=== PATIENT | male | born 1965 | race Caucasian/White ===

== ENCOUNTER 2017-01-07 12:55 | Emergency (ER) | payer OTHER ==
--- NOTE | 2017-01-07 13:15 | EDM.PDOC ---
ED HPI GENERAL MEDICAL PROBLEM - General Chief Complaint: Upper Extremity Injury/Pain Stated Complaint: LEFT SHOULDER PAIN Time Seen by Provider: 01/07/17 13:15 Source of Information: Reports: Patient - History of Present Illness INITIAL COMMENTS - FREE TEXT/NARRATIVE: HISTORY AND PHYSICAL: History of present illness: []Patient presents with 6 out of 10 pain concerning the left shoulder with movement, no pain associated with head movement does have some mild pain on forward extension is able to get bad past horizontal rotator cuff appears intact noting he has had a rotator cuff injury in the past as well as shoulder separation concerning the left shoulder. Apprehension test is negative no redness warmth or swelling no open lesion or bruising I can appreciate muscle spasm in the deltoid distribution as well as spasm associated with bicep and tricep which does produce were reproduce some of the pain he is having, entire limb is neurovascularly intact He states pain began after he attended a wedding in [place] he denies any injury or trauma states he was not drinking did not have any falls or stretches shoulder at that time however he woke up the following day with mild pain that was just noticeable and it is been increasing in severity with use since No fever nausea vomiting chills sweats Review of systems: As per history of present illness and below otherwise all systems reviewed and negative. Past medical history: As per history of present illness and as reviewed below otherwise noncontributory. Surgical history: As per history of present illness and as reviewed below otherwise noncontributory. Social history: No reported history of drug or alcohol abuse. Family history: As per history of present illness and as reviewed below otherwise noncontributory. Physical exam: HEENT: Atraumatic, normocephalic, pupils reactive, negative for conjunctival pallor or scleral icterus, mucous membranes moist, throat clear, neck supple, nontender, trachea midline. Lungs: Clear to auscultation, breath sounds equal bilaterally, chest nontender. Heart: S1S2, regular, negative for clicks, rubs, or JVD. Abdomen: Soft, nondistended, nontender. Negative for masses or hepatosplenomegaly. Negative for costovertebral tenderness. Pelvis: Stable nontender. Genitourinary: Deferred. Rectal: Deferred. Extremities: Atraumatic, negative for cords or calf pain. Neurovascular unremarkable. Neuro: Awake, alert, oriented. Cranial nerves II through XII unremarkable. Cerebellum unremarkable. Motor and sensory unremarkable throughout. Exam nonfocal. Left shoulder as per history of present illness Diagnostics: []Left shoulder 3 views Therapeutics: []Cataflam 50 mg by mouth 3 times a day when necessary #30 no refill Ice ibuprofen Follow-up orthopedist Impression: []Left shoulder pain/muscle spasm Definitive disposition and diagnosis as appropriate pending reevaluation and review of above. Left Shoulder Pain Score (Numeric/FACES): 4 - Related Data Allergies Allergy/AdvReac Type Severity Reaction Status Date / Time No Known Allergies Allergy Verified 01/07/17 13:14 Home Meds: Home Meds . [No Known Home Meds] 01/07/17 [History] Review of Systems - Review of Systems Review Of Systems: ROS reveals no pertinent complaints other than HPI. ED EXAM, GENERAL - Physical Exam Exam: See Below Course - Vital Signs Last Recorded V/S: Last Vital Signs Temp 36.7 C 01/07/17 13:15 Pulse 92 01/07/17 13:15 Resp 18 01/07/17 13:15 BP 143/94 H 01/07/17 13:15 Pulse Ox 98 01/07/17 13:15 Departure - Departure Time of Disposition: 13:55 Disposition: Home, Self-Care 01 Condition: Good Clinical Impression: Muscle spasm, Left shoulder pain - Discharge Information Referrals: PCP,None [Primary Care Provider] - Forms: ED Department Discharge Additional Instructions: Medication as prescribed No need for ibuprofen or Tylenol with this medication Return if symptoms persist or worsen or new concerning symptoms develop Follow-up with orthopedist, number below provided for follow-up [facility] [address], [address] [place] [address] my orthopedic The following information is given to patients seen in the emergency department who are being discharged to home. This information is to outline your options for follow-up care. We provide all patients seen in our emergency department with a follow-up referral. The need for follow-up, as well as the timing and circumstances, are variable depending upon the specifics of your emergency department visit. If you don't have a primary care physician on staff, we will provide you with a referral. We always advise you to contact your personal physician following an emergency department visit to inform them of the circumstance of the visit and for follow-up with them and/or the need for any referrals to a consulting specialist. The emergency department will also refer you to a specialist when appropriate. This referral assures that you have the opportunity for follow-up care with a specialist. All of these measure are taken in an effort to provide you with optimal care, which includes your follow-up. Under all circumstances we always encourage you to contact your private physician who remains a resource for coordinating your care. When calling for follow-up care, please make the office aware that this follow-up is from your recent emergency room visit. If for any reason you are refused follow-up, please contact the [facility] emergency department at and asked to speak to the emergency department charge nurse.
--- NOTE | 2017-01-07 13:44 | CR ---
EXAMINATION: Left shoulder HISTORY: Pain COMPARISON: None TECHNIQUE: 3 views FINDINGS: Moderate acromioclavicular osteoarthritic changes are noted with mild widening at the AC chandler int. No fracture or acute osseous abnormalities demonstrated. Mild joint space narrowing is noted wit hin the glenohumeral joint with subcortical cystic change noted within the superior lateral humeral h ead. IMPRESSION: 1. Moderate osteoarthritic changes without a definite acute osseous abnormality identified.
[2017-01-07 18:11] VITALS: BP 138/92
== END 2017-01-07 14:30 | disposition home or self-care (01) ==
LOC: MW.ED 12:55
DX: M62.838 Other muscle spasm (principal); M25.512 Pain in left shoulder
CPT/HCPCS: 73030-26-LT; 73030-LT; 99283; 99284

== ENCOUNTER 2017-09-18 14:48 | Emergency (ER) | payer OTHER ==
[2017-09-18] MEDS ORDERED: Morphine 4 MG/ML Syringe IM ONE (15:08)
[2017-09-18] MEDS ORDERED: Morphine 4 MG/ML Syringe ONE (15:09)
--- NOTE | 2017-09-18 15:36 | CR ---
EXAMINATION: Right shoulder HISTORY: Pain COMPARISON: None TECHNIQUE: 2 views FINDINGS/IMPRESSION: There is an anterior inferior glenohumeral dislocation noted. Osseous structures and joint spaces otherwise appear intact. Moderate acromioclavicular osteoarthritic changes.
[2017-09-18] MEDS ORDERED: HYDROmorphone 2 MG/ML SDV IM ONE (15:50)
--- NOTE | 2017-09-18 15:52 | EDM.PDOC ---
ED HPI GENERAL MEDICAL PROBLEM - General Chief Complaint: Upper Extremity Injury/Pain Stated Complaint: MIGHT DISLOCATED RT SHOULDER Time Seen by Provider: 09/18/17 14:58 Source of Information: Reports: Patient History Limitations: Reports: No Limitations - History of Present Illness INITIAL COMMENTS - FREE TEXT/NARRATIVE: HISTORY AND PHYSICAL: History of present illness: Patient is a 52-year-old male who presents to the emergency room today with complaints of right shoulder pain after falling from standing height. He states he tripped and fell landing on his right shoulder, pain with range of motion and movement. Upon arrival the arm is guarded in towards his body. He states he does have a history of rotator cuff repair and is concerned he has dislocation along with some repeat injury of the rotator cuff. He denies hitting his head or any loss of consciousness. Denies any numbness or tingling to the affected extremity. Review of systems: As per history of present illness and below otherwise all systems reviewed and negative. Past medical history: As per history of present illness and as reviewed below otherwise noncontributory. Surgical history: As per history of present illness and as reviewed below otherwise noncontributory. Social history: No reported history of drug or alcohol abuse. Family history: As per history of present illness and as reviewed below otherwise noncontributory. Physical exam: General: Well-developed and well-nourished 52-year-old male. Alert and oriented. Nontoxic appearing and in no acute distress. HEENT: Atraumatic, normocephalic, pupils equal and reactive bilaterally, negative for conjunctival pallor or scleral icterus, mucous membranes moist, throat clear, neck supple, nontender, trachea midline. No drooling or trismus noted. No meningeal signs Lungs: Clear to auscultation, breath sounds equal bilaterally, chest nontender. Heart: S1S2, regular rate and rhythm without overt murmur Abdomen: Soft, nondistended, nontender. Negative for masses or hepatosplenomegaly. Negative for costovertebral tenderness. Pelvis: Stable nontender. Genitourinary: Deferred. Rectal: Deferred. Skin: Intact, warm, dry. No lesions or rashes noted. Extremities: Limited range of motion to right upper extremity, arm is guarded in towards his torso, appears to be anteriorly dislocated. Strong radial pulse. Capillary refill less than 3 seconds. All other extremities are within normal limits. negative for cords or calf pain. Neurovascular unremarkable. Neuro: Awake, alert, oriented. Cranial nerves II through XII unremarkable. Cerebellum unremarkable. Motor and sensory unremarkable throughout. Exam nonfocal. Notes: Patient rates his pain an 8 out of 10 and is requesting medication prior to going to x-ray. 4 mg of morphine given IM. Patient has returned from radiology. X-ray shows that there are no fractures but does appear to be dislocated. Dr Root and myself attempt to reduce the shoulder, unsuccessful due to muscular spasm. 5 mg of Valium IM given. Second attempt to reduce the right shoulder, unsuccessful. Patient tolerated well. States his pain is still an 8 out of 10. Vital signs are stable. Breathing even and easy. Radial pulse is still strong, bounding. Capillary refill less than 3 seconds. 1630- KENTON Camara, here to help with shoulder reduction. Consent was reviewed and signed. Successful reduction. Post-reduction xray obtained. 1645- Shoulder immobilizer was placed on patient with education. Due to the patient's multiple previous shoulder injury including rotator cuff repair, I strongly encouraged him to follow-up with the orthopedic provider as he may need further imaging to rule out any tendon or ligament involvement. #10 tabs Tramadol prescribed. Supportive care measures were reviewed and discussed. He voices understanding and is agreeable to plan of care. Denies any further questions at this time. His family is here to drive him home (informed patient/ family of NO driving for the rest of the evening). Diagnostics: X-ray right shoulder, Post reduction shoulder xray Therapeutics: Morphine, Valium, Dilaudid, IV fluids, Shoulder immobilizer Impression: Right shoulder dislocation Plan: 1. Please wear the shoulder immobilizer until you are cleared by orthopedics. Avoid doing any strenuous activity with the right arm. 2. Tylenol and or ibuprofen as needed for pain management. 3. Follow up with the orthopedic provider next week for further evaluation/ management. Return to the ED as needed and as discussed Definitive disposition and diagnosis as appropriate pending reevaluation and review of above. Onset: Today Duration: Minutes: Location: Reports: Upper Extremity, Right right shoulder Pain Score (Numeric/FACES): 8 - Related Data Allergies Allergy/AdvReac Type Severity Reaction Status Date / Time No Known Allergies Allergy Verified 09/18/17 15:00 Home Meds: Home Meds DULoxetine HCl [Cymbalta] 30 mg PO DAILY 09/18/17 [History] traZODone HCl [Trazodone HCl] 25 mg PO DAILY PRN 09/18/17 [History] Past Medical History HEENT History: Reports: Impaired Vision Cardiovascular History: Reports: None Respiratory History: Reports: None Gastrointestinal History: Reports: None Genitourinary History: Reports: None Musculoskeletal History: Reports: None Neurological History: Reports: None Psychiatric History: Reports: None Endocrine/Metabolic History: Reports: None Hematologic History: Reports: None Immunologic History: Reports: None Oncologic (Cancer) History: Reports: None Dermatologic History: Reports: None - Past Surgical History HEENT Surgical History: Reports: None Cardiovascular Surgical History: Reports: None Respiratory Surgical History: Reports: None GI Surgical History: Reports: None Male Surgical History: Reports: None Endocrine Surgical History: Reports: None Neurological Surgical History: Reports: None Musculoskeletal Surgical History: Reports: Amputation, Other (See Below) Other Musculoskeletal Surgeries/Procedures:: back surgery, rotator cuff surgery Oncologic Surgical History: Reports: None Dermatological Surgical History: Reports: None Social & Family History - Family History Family Medical History: Noncontributory - Tobacco Use Smoking Status *Q: Never Smoker Second Hand Smoke Exposure: No - Caffeine Use Caffeine Use: Reports: None Caffeine Use Comment: 2 cups per day - Recreational Drug Use Recreational Drug Use: No Review of Systems - Review of Systems Review Of Systems: ROS reveals no pertinent complaints other than HPI. ED EXAM, GENERAL - Physical Exam Exam: See Below (See dictation) Course - Vital Signs Last Recorded V/S: Last Vital Signs Temp 98.0 F 09/18/17 15:00 Pulse 72 09/18/17 15:00 Resp 18 09/18/17 16:36 BP 152/92 H 09/18/17 15:00 Pulse Ox 98 09/18/17 16:36 - Orders/Labs/Meds Meds: Medications Discontinued Medications Generic Name Dose Route Start Last Admin Trade Name Freq PRN Reason Stop Dose Admin Diazepam 5 mg 09/18/17 15:37 09/18/17 15:43 Valium IM 09/18/17 15:38 5 mg ONETIME ONE Administration Diazepam Confirm 09/18/17 15:38 09/18/17 15:52 Valium Administered 09/18/17 15:39 Not Given Dose 50 mg .ROUTE .STK-MED ONE Hydromorphone HCl 1 mg 09/18/17 15:50 09/18/17 15:57 Dilaudid IM 09/18/17 15:51 1 mg ONETIME ONE Administration Morphine Sulfate 4 mg 09/18/17 15:08 09/18/17 15:10 Morphine IM 09/18/17 15:09 4 mg ONETIME ONE Administration Morphine Sulfate Confirm 09/18/17 15:09 09/18/17 15:12 Morphine Administered 09/18/17 15:10 Not Given Dose 4 mg .ROUTE .STK-MED ONE Propofol Confirm 09/18/17 16:38 Diprivan 20 Ml Administered 09/18/17 16:39 Dose 400 mg .ROUTE .STK-MED ONE Departure - Departure Time of Disposition: 16:52 Disposition: Home, Self-Care 01 Clinical Impression: Shoulder dislocation Qualifiers: Encounter type: initial encounter Laterality: right Qualified Code(s): S43.004A - Unspecified dislocation of right shoulder joint, initial encounter - Discharge Information Instructions: Shoulder Dislocation, [id number] Referrals: Willi Lai MD [Primary Care Provider] - Forms: ED Department Discharge Additional Instructions: The following information is given to patients seen in the emergency department who are being discharged to home. This information is to outline your options for follow-up care. We provide all patients seen in our emergency department with a follow-up referral. The need for follow-up, as well as the timing and circumstances, are variable depending upon the specifics of your emergency department visit. If you don't have a primary care physician on staff, we will provide you with a referral. We always advise you to contact your personal physician following an emergency department visit to inform them of the circumstance of the visit and for follow-up with them and/or the need for any referrals to a consulting specialist. The emergency department will also refer you to a specialist when appropriate. This referral assures that you have the opportunity for follow-up care with a specialist. All of these measure are taken in an effort to provide you with optimal care, which includes your follow-up. Under all circumstances we always encourage you to contact your private physician who remains a resource for coordinating your care. When calling for follow-up care, please make the office aware that this follow-up is from your recent emergency room visit. If for any reason you are refused follow-up, please contact the [facility] Emergency Department at and asked to speak to the emergency department charge nurse. [facility] [address], [address] [place] [address] 1. Please wear the shoulder immobilizer until you are cleared by orthopedics. Avoid doing any strenuous activity with the right arm. 2. Tylenol and or ibuprofen as needed for pain management. Tramadol as needed for moderate - severe pain. Will cause drowsiness, so do not take while driving or needing to be functioning outside the house. 3. Follow up with the orthopedic provider next week for further evaluation/ management. Return to the ED as needed and as discussed
--- NOTE | 2017-09-18 16:36 | PCM.PREANE ---
Preanesthetic Assessment - Anesthesia/Transfusion/Family Hx Anesthesia History: Prior Anesthesia Without Reaction - Review of Systems General: No Symptoms Pulmonary: No Symptoms Cardiovascular: No Symptoms Gastrointestinal: No Symptoms Neurological: No Symptoms Other: Reports: None - Physical Assessment O2 Sat by Pulse Oximetry: 98 Respiratory Rate: 18 Vital Signs: Last Vital Signs Temp 98.0 F 09/18/17 15:00 Pulse 72 09/18/17 15:00 Resp 18 09/18/17 15:00 BP 152/92 H 09/18/17 15:00 Pulse Ox 98 09/18/17 15:00 Height: 5 ft 10 in Weight: 77.111 kg ASA Class: 2E Mental Status: Alert & Oriented x3 Airway Class: Mallampati = 2 Dentition: Reports: Normal Dentition Thyro-Mental Finger Breadths: 3 Mouth Opening Finger Breadths: 3 ROM/Head Extension: Full Lungs: Clear to Auscultation, Normal Respiratory Effort Cardiovascular: Regular Rate, Regular Rhythm - Allergies Allergies/Adverse Reactions: Allergies Allergy/AdvReac Type Severity Reaction Status Date / Time No Known Allergies Allergy Verified 09/18/17 15:00 - Acknowledgements Anesthesia Type Planned: MAC Pt an Appropriate Candidate for the Planned Anesthesia: Yes Alternatives and Risks of Anesthesia Discussed w Pt/Guardian: Yes Pt/Guardian Understands and Agrees with Anesthesia Plan: Yes PreAnesthesia Questionnaire HEENT History: Reports: Impaired Vision Cardiovascular History: Reports: None Respiratory History: Reports: None Gastrointestinal History: Reports: None Genitourinary History: Reports: None Musculoskeletal History: Reports: None Neurological History: Reports: None Psychiatric History: Reports: None Endocrine/Metabolic History: Reports: None Hematologic History: Reports: None Immunologic History: Reports: None Oncologic (Cancer) History: Reports: None Dermatologic History: Reports: None - Past Surgical History HEENT Surgical History: Reports: None Cardiovascular Surgical History: Reports: None Respiratory Surgical History: Reports: None GI Surgical History: Reports: None Male Surgical History: Reports: None Endocrine Surgical History: Reports: None Neurological Surgical History: Reports: None Musculoskeletal Surgical History: Reports: Amputation, Other (See Below) Other Musculoskeletal Surgeries/Procedures:: back surgery, rotator cuff surgery Oncologic Surgical History: Reports: None Dermatological Surgical History: Reports: None - SUBSTANCE USE Smoking Status *Q: Never Smoker Second Hand Smoke Exposure: No Recreational Drug Use History: No - HOME MEDS Home Medications: Home Meds DULoxetine HCl [Cymbalta] 30 mg PO DAILY 09/18/17 [History] traZODone HCl [Trazodone HCl] 25 mg PO DAILY PRN 09/18/17 [History] - CURRENT (IN HOUSE) MEDS Current Meds: Current Medications Discontinued Medications Diazepam (Valium) 5 mg IM ONETIME ONE Stop: 09/18/17 15:38 Last Admin: 09/18/17 15:43 Dose: 5 mg Diazepam (Valium) Confirm Administered Dose 50 mg .ROUTE .STK-MED ONE Stop: 09/18/17 15:39 Last Admin: 09/18/17 15:52 Dose: Not Given Hydromorphone HCl (Dilaudid) 1 mg IM ONETIME ONE Stop: 09/18/17 15:51 Last Admin: 09/18/17 15:57 Dose: 1 mg Morphine Sulfate (Morphine) 4 mg IM ONETIME ONE Stop: 09/18/17 15:09 Last Admin: 09/18/17 15:10 Dose: 4 mg Morphine Sulfate (Morphine) Confirm Administered Dose 4 mg .ROUTE .STK-MED ONE Stop: 09/18/17 15:10 Last Admin: 09/18/17 15:12 Dose: Not Given
[2017-09-18] MEDS ORDERED: Propofol 200 MG/20 ML SDV ONE (16:38)
--- NOTE | 2017-09-18 16:55 | PCM48HPAN ---
Post Anesthesia Note - EVALUATION WITHIN 48HRS OF ANESTHETIC Vital Signs in Normal Range: Yes Patient Participated in Evaluation: Yes Respiratory Function Stable: Yes Airway Patent: Yes Cardiovascular Function Stable: Yes Hydration Status Stable: Yes Pain Control Satisfactory: Yes Nausea and Vomiting Control Satisfactory: Yes Mental Status Recovered: Yes Pulse Rate: 80 Resp Rate: 14 Blood Pressure: 136/84
--- NOTE | 2017-09-18 16:55 | PCM.POSTAN ---
POST ANESTHESIA ASSESSMENT - MENTAL STATUS Mental Status: Alert, Oriented - VITAL SIGNS Pulse Rate: 80 SaO2: 99 Resp Rate: 14 Blood Pressure: 136/84 - RESPIRATORY Respiratory Status: Respiratory Rate WNL, Airway Patent, O2 Saturation Stable - CARDIOVASCULAR CV Status: Pulse Rate WNL, Blood Pressure Stable - GASTROINTESTINAL GI Status: No Symptoms - PAIN Pain Score: 0 - POST OP HYDRATION Hydration Status: Adequate & Stable
[2017-09-18 19:02] VITALS: BP 149/89
--- NOTE | 2017-09-21 17:54 | CR ---
EXAM DATE: 09/18/17 PATIENT'S AGE: 52 Patient: ARY OTERO Facility: [place], [place] Site . Site : 1965 Study: XRay Shoulder Right [id number]/[id number]/2018 5:32:52 PM Ordering Physician: Doctor Martinez Final Report: INDICATION: Postreduction. TECHNIQUE: Two views of the right shoulder. COMPARISON: Earlier today at 1509 hours. IMPRESSION: Limited scapular Y-view. However, the humeral head appears appropriately positioned, with reduction of the previously noted anterior-inferior glenohumeral joint dislocation. No appreciable fracture. Dictated by Pito Espino MD @ 09/18/2017 6:19:26 PM Dictated by: Pito Espino MD @ 09/18/2017 18:19:35 (Electronic Signature) Report Signed by Proxy. [facility]
== END 2017-09-18 18:56 | disposition home or self-care (01) ==
LOC: MW.ED 14:48
DX: S43.004A Unspecified dislocation of right shoulder joint, initial encounter (principal); W01.0XXA Fall on same level from slipping, tripping and stumbling without subsequent striking against object, initial encounter; Z79.899 Other long term (current) drug therapy
CPT/HCPCS: 23650; 73030; 96372; 99283; A9270; J1170; J2270; J2704

== ENCOUNTER 2023-11-04 19:37 | Emergency (ER) | payer BC ==
[2023-11-04] MEDS: Sodium Chloride 0.9% 10 ML Syringe FLUSH PRN (19:57)
[2023-11-04] MEDS: Sodium Chloride 0.9% 2.5 ML Syringe FLUSH PRN (19:57)
[2023-11-04 20:51] LABS: BASOPHILS ABSOLUTE AUTO 0.06 K/uL (0.00-0.20); EOSINOPHILS ABSOLUTE AUTO 0.11 K/uL (0.00-0.45); EOSINOPHILS PERCENT AUTO 1.8 % (0.0-6.0); HEMATOCRIT 32.3 % (42.0-52.0); HEMOGLOBIN 11.7 g/dL (14.0-18.0); IMMATURE GRAN ABSOLUTE AUTO 0.02 K/uL (0.00-0.05); IMMATURE GRAN PERCENT AUTO 0.3 % (0.0-0.4); LYMPHOCYTES ABSOLUTE AUTO 2.93 K/uL (1.00-4.80); LYMPHOCYTES PERCENT AUTO 47.3 % (24.0-44.0); MEAN CORPUSCULAR HEMOGLOBIN 34.8 pg (28.0-32.0); MEAN CORPUSCULAR HGB CONC 36.2 g/dL (32.0-36.0); MEAN CORPUSCULAR VOLUME 96.1 fL (83.0-99.0); MEAN PLATELET VOLUME 11.4 fL (9.4-12.4); MONOCYTES ABSOLUTE AUTO 0.53 K/uL (0.00-0.80); MONOCYTES PERCENT AUTO 8.6 % (0.0-8.0); NEUTROPHILS ABSOLUTE AUTO 2.54 K/uL (1.80-7.70); RED BLOOD CELL COUNT 3.36 M/uL (4.52-5.90); WHITE BLOOD CELL COUNT,WBC 6.19 K/uL (3.9-11.3)
[2023-11-04 21:11] LABS: PLATELET COUNT,PLT 60 K/uL (150-400)
[2023-11-04 21:18] LABS: A/G RATIO 0.5 (0.9-1.6); ALBUMIN 2.7 g/dL (3.4-5.0); BILIRUBIN TOTAL 3.8 mg/dL (0.2-1.0); CALCIUM 8.1 mg/dL (8.5-10.1); CARBON DIOXIDE,CO2 19.1 mmol/L (21.0-32.0); CREATININE 1.2 mg/dL (0.8-1.3); EST CRCL DRUG DOSING (CG) 67.1 mL/min; POTASSIUM,K 3.7 mmol/L (3.5-5.1); PROTEIN TOTAL,TP 8.1 g/dL (6.4-8.2)
[2023-11-04] MEDS: Iopamidol 755 MG/ML 500 ML Multipack Bottle IVPUSH STA (22:05)
[2023-11-04 22:25] VITALS: PULSE 70
[2023-11-04 23:30] VITALS: BP 140/72
== END 2023-11-05 00:02 | disposition home or self-care (01) ==
LOC: MW.ED 19:37
DX: R06.02 Shortness of breath (principal); K70.10 Alcoholic hepatitis without ascites; Z75.8 Other problems related to medical facilities and other health care
CPT/HCPCS: 36415; 71045; 71275; 80053; 80307; 83880; 84484; 85025; 85379; 93005; 96374; 99285; J3360; J3490; Q9967; 93010; 99284